=== PATIENT | female | born 1980 | race Two or more races ===

== ENCOUNTER 2018-07-30 20:53 | Emergency (ER) | payer MEDICAID | END 2018-07-30 22:26 | disposition home or self-care (01) | LOC: FTE 20:53 | DX: R05 Cough (principal); E11.9 Type 2 diabetes mellitus without complications; Z79.4 Long term (current) use of insulin; Z79.82 Long term (current) use of aspirin | CPT/HCPCS: 99283 ==

== ENCOUNTER 2019-01-15 20:28 | Emergency (ER) | payer MEDICAID ==
[2019-01-15] MEDS: IBUPROFEN 600 MG TAB PO (20:59)
== END 2019-01-15 21:17 | disposition home or self-care (01) ==
LOC: FTE 20:28
DX: J02.9 Acute pharyngitis, unspecified (principal); Z79.4 Long term (current) use of insulin; Z79.82 Long term (current) use of aspirin
CPT/HCPCS: 99283; Z7502

== ENCOUNTER 2019-02-16 21:58 | Emergency (ER) | payer MEDICAID | END 2019-02-17 02:11 | disposition home or self-care (01) | LOC: FTE 02-17 02:11 | DX: S99.912A Unspecified injury of left ankle, initial encounter (principal); E11.9 Type 2 diabetes mellitus without complications; X50.1XXA Overexertion from prolonged static or awkward postures, initial encounter; Y92.9 Unspecified place or not applicable; Z79.4 Long term (current) use of insulin; Z79.82 Long term (current) use of aspirin | CPT/HCPCS: 73610; 73630-LT; 99283-25 ==